=== PATIENT | male | born 1990 | race American Indian/Alaskan Native ===

== ENCOUNTER 2017-03-25 16:29 | Emergency (ER) | payer SELFPAY ==
--- NOTE | 2017-03-25 20:18 | Emergency Department Report ---
ED Rash HPI - HPI Chief Complaint: Skin Rash Stated Complaint: RASH Time Seen by Provider: 03/25/17 19:21 Duration: over 1 month Location: Other (generalized) Suspected Cause: Unknown Rash Symptoms: Yes Itching (patient reports that he just got over a viral cold) , No Facial Swelling, No Tongue/Oral Swelling, No Breathing Difficulties, No Choking Sensation, No Wheezing/Dyspnea, No Peeling, No Blistering, No Fever, No Lightheaded, No Malaise, No Myalgias Severity: severe (report severe itching) Other History: This is a 26-year-old male presented to the emergency room with itchy rash that started over a month ago. Patient is HIV positive and he is on medication and followed by infectious disease at the [facility]. Patient reports that his CD4 count is 700. Patient reports that he is just getting over a cold. Denies any fever or chills. Denies any nausea vomiting. He denies any pain. He said itching is severe and is getting worse. He reports that the rash started on his chest area and is now spread into his head back, chest abdomen, pubic region. Denies any shortness of breath or chest pain. Denies any difficulty breathing. Denies any swelling of tongue or difficulty swallowing. ED Review of Systems ROS: Stated complaint: RASH Other details as noted in HPI Comment: All other systems reviewed and negative Constitutional: no symptoms reported ENT: denies: ear pain, throat pain, congestion Respiratory: no symptoms reported Cardiovascular: denies: chest pain, palpitations, dyspnea on exertion, edema, syncope, paroxysmal nocturnal dyspnea Gastrointestinal: denies: abdominal pain, nausea, vomiting, diarrhea Skin: rash, pruritus Neurological: denies: headache, numbness, abnormal gait, vertigo ED Past Medical Hx - Past Medical History Previous Medical History?: Yes Hx Congestive Heart Failure: No Hx Diabetes: No Hx Asthma: No Hx COPD: No Hx HIV: Yes - Surgical History Past Surgical History?: No - Family History Family history: no significant - Social History Smoking Status: Never Smoker Substance Use Type: None - Medications Home Medications: Home Medications Medication Instructions Recorded Confirmed Last Taken Type Fluconazole [Diflucan ORAL SOLN] 100 mg PO QDAY 14 Days oral.liqd 08/19/15 Unknown Rx HYDROmorphone [Dilaudid] 2 mg PO Q6HR #20 tablet 08/19/15 Unknown Rx Nystatin [Nystatin SUSP] 10 ml PO TID 15 Days ml 08/19/15 Unknown Rx Diphenhydramine HCl/Zinc Acet 28.3 gm TP TID PRN 7 Days #1 03/25/17 Unknown Rx [Benadryl Itch Stopping Crm] cream..g. Valacyclovir HCl [Valtrex] 1,000 mg PO TID 10 Days #30 tablet 03/25/17 Unknown Rx hydrOXYzine HCL [Atarax] 25 mg PO Q6HR PRN 6 Days #24 tablet 03/25/17 Unknown Rx Rash Exam - Exam General: Vital signs noted. No distress. Alert and acting appropriately. This is a 26-year-old male well-nourished well-developed in no acute distress. HEENT: No Periorbital Edema, No Conjuctival Injection, No Chemosis, No Perioral Edema, No Tongue Edema, No Uvular Edema, No Compromised Airway, No Drooling Lungs: Yes Good Air Exchange, No Wheezes, No Ronchi, No Stridor, No Cough, No Labored Respirations, No Retractions, No Use of Accessory Muscles, No Other Abnormal Lung Sounds Heart: Yes Regular, No Murmur Skin: Yes Other ( appearance of ring like morphology, nttp, no erythma, herald patches, oval, papulosquamous lesions on the trunk , Groin, pubic area, arms thighs, neck, scalp and sparing face and oral mucosa.lesions are 2-5 cm in diameter. Some lesions are scaly and some with central clearing.), No Urticarial Rash, No Maculopapular Rash, No Morbilliform rash, No Bulla(e), No Excoriations, No Weeping, No Tenderness, No Erythema, No Edema, No Encrustations (area of crusting to rash site) Other: Positive: Abdomen Normal, Neurologic Normal, Musculoskeletal Normal ED Course Vital Signs 03/25/17 16:32 Temperature 98.4 F Pulse Rate 100 H Respiratory 14 Rate Blood Pressure 137/79 O2 Sat by Pulse 97 Oximetry - Reevaluation(s) Reevaluation #1: 03/25/17 20:27 Patient stable throughout ED stay. He was given Benadryl 50 mg IM for itching. Reevaluation #2: 03/26/17 01:00 CLINICAL FEATURES CA is largely a disease of older children and young adults. It is slightly more common in women than men. A prodrome of headache, malaise, and pharyngitis may occur in a small number of cases, but except for itching, the condition is usually asymptomatic. In 50 to 90 percent of cases, the eruption begins with a "herald" or "mother" patch, a single round or oval, sharply delimited, pink or salmon-colored lesion on the chest, neck, or back (picture 1C, 1F) [10]. The herald patch is usually 2 to 5 cm in diameter. The lesion soon becomes scaly and begins to clear centrally, leaving the free edge of the cigarette paper-like scale directed inwards toward the center. This clinical finding is often described as a "collarette" of scale. A few days or one to two weeks later, oval lesions similar in appearance to the herald patch, but smaller, appear in crops on the trunk and proximal areas of the extremities (picture 1A-E, 1G). The long axes of these oval lesions tend to be oriented along the lines of cleavage of the skin. This characteristic arrangement is most evident on the back, where it is emphasized by the oblique direction of the cleavage lines in that location. This morphologic pattern has been referred to as a "fir tree" or "Brittany tree" distribution. The eruption spreads centrifugally or from the top down over the course of a few days. Erythema gradually subsides, desquamation is completed, and the eruption fades, leaving few residual changes, except postinflammatory dyspigmentation. In most cases the papules and plaques resolve in four to six weeks; occasionally the disease will persist for several months. Postinflammatory hyperpigmentation is a common sequela in dark-skinned individuals and often takes several months or longer to resolve. In children, the distribution of the lesions is often atypical, involving the scalp and face; it may be completely "inverse," affecting the face and distal extremities, while sparing the trunk, or may be concentrated in the pubic, inguinal, and axillary regions (picture 1G-J) [11]. The lesions themselves also are sometimes atypical in children; they may be folliculo-papular, vesicular, pustular, urticarial, or purpuric. CA generally has only mild effects on quality of life in children [12]. Oropharyngeal abnormalities have been reported in patients with CA. In a review of 527 patients with CA, 149 patients (28 percent) had oropharyngeal lesions, with petechial, macular, and papular eruptions as the most common findings [13] . Oropharyngeal swabs for culture were performed in 90 patients and showed normal eusebia in all patients. Mucosal biopsies were not performed. DIAGNOSIS The presence of a herald patch by history or on examination, the characteristic morphology and distribution of the lesions, and the absence of symptoms other than pruritus combine to make CA an easy diagnosis in most instances. However, the herald patch can resemble tinea corporis so closely that potassium hydroxide (MADISON) examination of scales for dermatophyte hyphae may be necessary to distinguish these conditions. (See 'Differential diagnosis' below and "Dermatologic procedures", section on 'Potassium hydroxide (MADISON) prep' .) There are typically no laboratory abnormalities with CA. Serologic testing to rule out syphilis is recommended for sexually active patients. The cutaneous manifestations of secondary syphilis resemble CA (picture 3B). (See ' Differential diagnosis' below and "Syphilis: Screening and diagnostic testing", section on 'Approach to testing'.) Skin biopsy is rarely necessary, but when performed shows focal parakeratosis with or without acanthosis, spongiosis, a perivascular infiltrate of lymphocytes and histiocytes, and occasionally extravasation of red cells ( picture 2). The biopsy picture is characteristic, but not pathognomonic. A 3 mm or 4 mm punch biopsy typically provides an adequate specimen for analysis. (See "Skin biopsy techniques", section on 'Punch biopsy'.) ED Medical Decision Making - Medical Decision Making ED course: Patient here report that he has itchy rash that spread in over a month. Patient is HIV positive and according to him he has CD4 count of 700 and she'll make him immunocompetent. Patient with clinical findings for widespread rash which is viral in nature . Patient with pityriasis rosae and itchy skin. Patient was referred to occupational therapist aide to follow up with his infectious disease doctor. I discussed patient diagnosis and treatment plan. Patient was given Benadryl 50 mg IM and emergency room to help with itching. I discussed patient that this is a viral rash and will run its course. I discussed with him to avoid scratching the areas as they can turn into sore and he can develop cellulitis due to his HIV status. Patient discharged home from ED with family with prescription for Benadryl cream, valacyclovir and Atarax. Critical care attestation.: If time is entered above; I have spent that time in minutes in the direct care of this critically ill patient, excluding procedure time. ED Disposition Clinical Impression: Viral rash, Pruritic dermatitis, Pityriasis rosea Disposition: MED SCREENING EXAM-LEFT Is pt being admited?: No Does the pt Need Aspirin: No Condition: Stable Instructions: Pityriasis rosea (ED), Itchy Skin (ED) Additional Instructions: Please follow up with occupational therapist aide as instructed Please call your infectious disease doctor on Tuesday and let him know that you were in not emergency room and diagnosed with viral rash and let them know that you're put on antiviral medication Please increase her fluid intake Take Atarax every 6 hours as needed for itching but please do not drive or operate heavy machinery while taking as this medication can cause drowsiness This is a viral rash and will run its course. You can also apply Benadryl cream to affected areas. Prescriptions: Diphenhydramine HCl/Zinc Acet [Benadryl Itch Stopping Crm] 28.3 gm TP TID PRN 7 Days #1 cream..g. PRN Reason: Itching hydrOXYzine HCL [Atarax] 25 mg PO Q6HR PRN 6 Days #24 tablet PRN Reason: Itching Valacyclovir HCl [Valtrex] 1,000 mg PO TID 10 Days #30 tablet Referrals: PRIMARY CARE, [Primary Care Provider] - 03/28/17 your, infectious disease doctor [Other] - 03/28/17 СЕРГЕЙ RUCKER MD [Staff Physician] - 03/28/17 Forms: Work/School Release Form(ED)
[2017-03-25] MEDS ORDERED: BENADRYL IM ONE (20:19)
[2017-03-25 20:52] VITALS: BP 143/93
== END 2017-03-25 20:52 | disposition left against medical advice (07) ==
LOC: ED 16:29
DX: B34.9 Viral infection, unspecified (principal); L42 Pityriasis rosea; L30.8 Other specified dermatitis
CPT/HCPCS: 96372; 99282; J1200

== ENCOUNTER 2018-08-27 03:24 | Emergency (ER) | payer OTHER ==
[2018-08-27] MEDS ORDERED: TYLENOL PO ONE (05:45)
--- NOTE | 2018-08-27 09:27 | Emergency Department Report ---
ED General Adult HPI - General Chief complaint: Rectal Pain Stated complaint: HEMORRHOIDS Time Seen by Provider: 08/27/18 08:35 Source: patient Mode of arrival: Ambulatory Limitations: No Limitations - History of Present Illness Initial comments: This is a 27-year-old male nontoxic, well nourished in appearance, no acute signs of distress presents to the ED with c/o of acute on chronic hemorrhoids. Patient stated the past 3 days he started to have pain again. Patient denies any rectal bleeding. Patient denies abdominal pain. Denies any nausea vo miting, chest pain, shortness of breath, headache, stiff neck, numbness or tingling. Patient denies any allergies or PMH. MD Complaint: rectal pain -: days(s) (3) Radiation: non-radiation Severity scale (0 -10): 3 Quality: aching Consistency: constant Improves with: none Worsens with: none Associated Symptoms: denies other symptoms. denies: confusion, chest pain, cough, diaphoresis, fever/chills, headaches, loss of appetite, malaise, nausea/vomiting, rash, seizure, shortness of breath, syncope, weakness - Related Data Previous Rx's Medication Instructions Recorded Last Taken Type Fluconazole [Diflucan ORAL SOLN] 100 mg PO QDAY 14 Days oral.liqd 08/19/15 Unknown Rx HYDROmorphone [Dilaudid] 2 mg PO Q6HR #20 tablet 08/19/15 Unknown Rx Nystatin [Nystatin SUSP] 10 ml PO TID 15 Days ml 08/19/15 Unknown Rx Diphenhydramine HCl/Zinc Acet 28.3 gm TP TID PRN 7 Days #1 03/25/17 Unknown Rx [Benadryl Itch Stopping Crm] cream..g. Valacyclovir HCl [Valtrex] 1,000 mg PO TID 10 Days #30 tablet 03/25/17 Unknown Rx hydrOXYzine HCL [Atarax] 25 mg PO Q6HR PRN 6 Days #24 tablet 03/25/17 Unknown Rx Docusate Sodium [Colace] 100 mg PO BID PRN #30 capsule 08/27/18 Unknown Rx Hydrocortisone [Anusol-Hc] 30 gm RC DAILY #1 cream..g. 08/27/18 Unknown Rx Allergies Allergy/AdvReac Type Severity Reaction Status Date / Time No Known Allergies Allergy Verified 08/18/15 10:27 ED Review of Systems ROS: Stated complaint: HEMORRHOIDS Other details as noted in HPI Constitutional: denies: chills, fever Eyes: denies: eye pain, eye discharge, vision change ENT: denies: ear pain, throat pain Respiratory: denies: cough, shortness of breath, wheezing Cardiovascular: denies: chest pain, palpitations Endocrine: no symptoms reported Gastrointestinal: denies: abdominal pain, nausea, diarrhea Genitourinary: denies: urgency, dysuria Musculoskeletal: denies: back pain, joint swelling, arthralgia Skin: denies: rash, lesions Neurological: denies: headache, weakness, paresthesias Psychiatric: denies: anxiety, depression Hematological/Lymphatic: denies: easy bleeding, easy bruising ED Past Medical Hx - Past Medical History Previous Medical History?: Yes Hx Congestive Heart Failure: No Hx Diabetes: No Hx Asthma: No Hx COPD: No Hx HIV: Yes - Surgical History Past Surgical History?: No - Social History Smoking Status: Never Smoker Substance Use Type: None - Medications Home Medications: Home Medications Medication Instructions Recorded Confirmed Last Taken Type Fluconazole [Diflucan ORAL SOLN] 100 mg PO QDAY 14 Days oral.liqd 08/19/15 Unknown Rx HYDROmorphone [Dilaudid] 2 mg PO Q6HR #20 tablet 08/19/15 Unknown Rx Nystatin [Nystatin SUSP] 10 ml PO TID 15 Days ml 08/19/15 Unknown Rx Diphenhydramine HCl/Zinc Acet 28.3 gm TP TID PRN 7 Days #1 03/25/17 Unknown Rx [Benadryl Itch Stopping Crm] cream..g. Valacyclovir HCl [Valtrex] 1,000 mg PO TID 10 Days #30 tablet 03/25/17 Unknown Rx hydrOXYzine HCL [Atarax] 25 mg PO Q6HR PRN 6 Days #24 tablet 03/25/17 Unknown Rx Docusate Sodium [Colace] 100 mg PO BID PRN #30 capsule 08/27/18 Unknown Rx Hydrocortisone [Anusol-Hc] 30 gm RC DAILY #1 cream..g. 08/27/18 Unknown Rx ED Physical Exam - General Limitations: No Limitations General appearance: alert, in no apparent distress - Head Head exam: Present: atraumatic, normocephalic - GI/Abdominal GI/Abdominal exam: Present: soft, normal bowel sounds. Absent: distended, tend erness, guarding, rebound, rigid, diminished bowel sounds - Rectal Rectal exam: Present: normal inspection, normal rectal tone, hemorrhoids (reducible) - Extremities Exam Extremities exam: Present: normal inspection, full ROM - Back Exam Back exam: Present: normal inspection, full ROM - Neurological Exam Neurological exam: Present: alert, oriented X3 - Psychiatric Psychiatric exam: Present: normal affect, normal mood - Skin Skin exam: Present: warm, dry, intact, normal color. Absent: rash ED Course Vital Signs 08/27/18 03:30 Temperature 98.0 F Pulse Rate 93 H Respiratory 18 Rate Blood Pressure 140/95 O2 Sat by Pulse 97 Oximetry - Reevaluation(s) Reevaluation #1: 08/27/18 09:26 Patient is speaking in full sentences with no signs of distress noted. ED Medical Decision Making - Medical Decision Making This is a 27-year-old male that presents with external hemorrhoids. Hemorrhoids are reducible. Patient is stable and was examined by me. Patient be treated with topical analgesic and patient was educated on sitz bath. Patient also received a pamphlet to be about sitz bath. Patient was referred to Dr. De Luna general surgeon. Patient was also instructed to Follow-up with a primary care doctor in 3-5 days or if symptoms worsen and continue return to emergency room as soon as possible. At time of discharge, the patient does not seem toxic or ill in appearance. No acute signs of distress noted. Patient agrees to discharge treatment plan of care. No further questions noted by the patient. Critical care attestation.: If time is entered above; I have spent that time in minutes in the direct care of this critically ill patient, excluding procedure time. ED Disposition Clinical Impression: External hemorrhoids Disposition: [id number] TO HOME OR SELFCARE Is pt being admited?: No Does the pt Need Aspirin: No Condition: Stable Instructions: Hemorrhoids (ED), Sitz Bath (GEN) Additional Instructions: Follow-up with a general surgeon doctor in 3-5 days or if symptoms worsen and continue return to emergency room as soon as possible. Prescriptions: Hydrocortisone [Anusol-Hc] 30 gm RC DAILY #1 cream..g. Docusate Sodium [Colace] 100 mg PO BID PRN #30 capsule PRN Reason: Constipation Referrals: [facility] [Other] - 3-5 Days PRIMARY CAREMD [Referring] - 3-5 Days MARILIA DE LUNA MD [Staff Physician] - 3-5 Days Forms: Work/School Release Form(ED)
[2018-08-27 09:51] VITALS: BP 143/90
== END 2018-08-27 09:53 | disposition home or self-care (01) ==
LOC: ED 03:24
DX: K64.4 Residual hemorrhoidal skin tags (principal)